=== PATIENT | female | born 1980 | race Caucasian/White ===

== ENCOUNTER 2023-02-01 22:10 | Outpatient (CLI) | payer OTHER, SELFPAY | END 2023-02-01 22:11 | disposition home or self-care (01) | LOC: AMB 02-12 04:55 | PROVIDERS: Visit Provider Family Medicine | DX: R41.82 Altered mental status, unspecified (principal); F10.129 Alcohol abuse with intoxication, unspecified | CPT/HCPCS: A0425; A0427 ==